=== PATIENT | male | born 1940 | race Caucasian/White ===

== ENCOUNTER 2022-08-13 15:41 | Outpatient (CLI) | payer MEDICARE, SELFPAY ==
[2022-08-13 13:07] LABS: ALT 39 U/L (16-63); AST 25 U/L (15-37); Albumin 3.9 g/dL (3.4-5.0); Alkaline Phosphatase 72 U/L (46-116); Bilirubin, Direct 0.2 mg/dL (0.0-0.2); Bilirubin, Total 0.9 mg/dL (0.2-1.0); Total Protein 7.5 g/dL (6.4-8.2)
== END 2022-08-13 15:42 | disposition home or self-care (01) ==
LOC: LBO 15:49
PROVIDERS: Visit Provider Radiology Radiation Oncology
DX: C61 Malignant neoplasm of prostate (principal)
CPT/HCPCS: 36415; 80076

== ENCOUNTER 2023-06-25 13:52 | Outpatient (CLI) | payer MEDICARE, SELFPAY ==
--- NOTE | 2023-06-25 09:30 | DI.RAD_ITS ---
Exam(s) XR KNEE LT 3V AP,LAT,AFIA EXAM: XR KNEE LT 3V AP,LAT,AFIA CLINICAL HISTORY: LEFT KNEE PAIN. TECHNIQUE: 2D digital imaging was performed of the left knee. Three images were obtained. AP, late ral and PA tunnel views were obtained. COMPARISON: CR Knee Left 3 Views from 08/09/2021 FINDINGS: BONES: No acute fracture is present. No bony destructive lesion is seen. JOINTS: There is again seen moderate narrowing of the medial femoral tibial joint. Small osteophytes are seen at the posterior patella. There is a moderate size joint effusion. There is chondrocalcin osis seen in the medial femoral tibial joint. There are densities again seen posterior to the knee w hich may be loose bodies. SOFT TISSUE: Atherosclerosis. IMPRESSION: Stable left knee arthrosis. Moderate joint effusion. DATA REPOSITORY: RADIATION DOSE DELIVERED:
== END 2023-06-25 13:53 | disposition home or self-care (01) ==
LOC: DIORS 13:52
PROVIDERS: PCP Family Medicine; Referring Provider Family Medicine; Visit Provider Student in an Organized Health Care Education/Training Program
DX: M25.562 Pain in left knee (principal); M17.11 Unilateral primary osteoarthritis, right knee; M17.12 Unilateral primary osteoarthritis, left knee
CPT/HCPCS: 73562; 99203